=== PATIENT | female | born 1985 | race Caucasian/White ===

== ENCOUNTER 2016-07-16 00:24 | Emergency (ER) | payer MEDICAID ==
[~2016-07-16] VITALS: Ht 157.5 cm; Wt 90.9 kg
[~2016-07-16 00:24] MED LIST: FERR240T9 PO; FOL8 PO; PREN-39 PO
[2016-07-16 00:28] VITALS: Ht 157.5 cm; Wt 90.9 kg
[2016-07-16] MEDS ORDERED: morphine 4 MG/ML VIAL IV STA (01:10)
[2016-07-16] MEDS ORDERED: ONDANSETRON 4 MG INJ IV STA (01:10)
[2016-07-16] MEDS ORDERED: SOD CHLORIDE 0.9% 1,000 ML IV STA (01:10)
--- NOTE | 2016-07-16 01:14 | ERD ---
ER Documentation Chief Complaint Date/Time DATE: 07/16/16 TIME: 01:12 Chief Complaint abd pain HPI Patient is a 31-year-old female who reports knowledge of her cholelithiasis. She states she has visited multiple ERs already for this. She apparently has also had a hospitalization over at [place] for this as well. She has been told to follow-up with a surgeon to have her gallbladder removed at her convenience. She states that she has come here tonight because she is started having abdominal pain once again about an hour ago. Pain is located in epigastric region as well as right upper quadrant radiating through to the back with nausea and vomiting. She has not had any fever. Initially she said she had an infection however on further questioning she was told that she was at risk for infection. She has not had any diarrhea or dysuria, no hematuria. She states eating and movement increases the pain, nothing helps the pain including the hydrocodone that she took. The remainder review systems are negative. ROS All systems reviewed and are negative except as per history of present illness. Medications Home Meds Reported Medications Folic Acid* (Folic Acid*) 0.8 Mg Tablet, 0.8 MG PO DAILY, TAB 07/09/15 Ferrous Gluconate (Iron) 1 Tab Tablet, 1 TAB PO DAILY, TAB 07/09/15 Vits W-Ca,Fe,Fa(<1MG) ( Vitamins) 1 Tab Tablet, 1 TAB PO DAILY , TAB 07/09/15 Allergies Allergies: Coded Allergies: No Known Allergy (Verified , 09/30/15) PMhx/Soc Medical and Surgical Hx: pt denies Surgical Hx History of Surgery: No Anesthesia Reaction: No Hx Neurological Disorder: No Hx Respiratory Disorders: No Hx Cardiac Disorders: No Hx Psychiatric Problems: No Hx Miscellaneous Medical Probl: Yes (gallstones) Hx Alcohol Use: No Hx Substance Use: No Hx Tobacco Use: No Smoking Status: Never smoker FmHx Differential includes but is not limited to cholelithiasis, biliary colic, cholecystitis, pancreatitis, gastritis, ulcer, GERD Family History: No diabetes Physical Exam Vitals Vital Signs Date Time Temp Pulse Resp B/P Pulse Ox O2 Delivery O2 Flow Rate FiO2 07/16/16 00:28 97.9 86 18 137/78 100 Physical Exam Const: [] Well-developed well-nourished female on the bed in no obvious distress Head: Atraumatic normocephalic Eyes: Normal Conjunctiva ENT: Normal External Ears, Nose and Mouth. Neck: Full range of motion..~ No meningismus. Resp: Clear to auscultation bilaterally Cardio: Regular rate and rhythm, no murmurs Abd: Soft, mild tenderness to palpation epigastric and right upper quadrant region with no masses, rebound, or guarding, non distended. Normal bowel sounds Skin: No petechiae or rashes Back: No midline or flank tenderness Ext: No cyanosis, or edema Neur: Awake and alert, oriented 3 with a GCS of 15 Psych: Normal Mood and Affect Result Diagram: 07/16/164 07/16/16 0124 Results 24 hrs Laboratory Tests Test 07/16/16 01:24 Alanine Aminotransferase (ALT/SGPT) 36IU/L Albumin 4.0g/dl Albumin/Globulin Ratio 1.25 Alkaline Phosphatase 95IU/L Anion Gap 17 Aspartate Amino Transf (AST/SGOT) 43IU/L Basophils # 0.010^3/ul Basophils % 0.2% Blood Urea Nitrogen 22mg/dl Calcium Level 8.9mg/dl Carbon Dioxide Level 26mmol/L Chloride Level 103mmol/L Creatinine 0.59mg/dl Direct Bilirubin 0.00mg/dl Eosinophils # 0.310^3/ul Eosinophils % 2.6% Globulin 3.20g/dl Glucose Level 133mg/dl Hematocrit 37.8% Hemoglobin 12.0g/dl Indirect Bilirubin 0.0mg/dl Lipase 69U/L Lymphocytes # 2.710^3/ul Lymphocytes % 25.2% Mean Corpuscular Hemoglobin 24.3pg Mean Corpuscular Hemoglobin Concent 31.7g/dl Mean Corpuscular Volume 76.7fl Mean Platelet Volume 8.7fl Monocytes # 0.510^3/ul Monocytes % 4.7% Neutrophils # 7.210^3/ul Neutrophils % 67.0% Nucleated Red Blood Cells # 0.010^3/ul Nucleated Red Blood Cells % 0.0/100WBC Platelet Count 59839^3/UL Potassium Level 4.0mmol/L Red Blood Count 4.9310^6/ul Red Cell Distribution Width 14.3% Sodium Level 142mmol/L Total Bilirubin 0.0mg/dl Total Protein 7.2g/dl White Blood Count 10.710^3/ul Current Medications Medications (Trade) Dose Ordered Sig/Crow Route PRN Reason Start Time Stop Time Status Last Admin Dose Admin Sodium Chloride (NS) 1,000 ml @ 1,000 mls/hr Q1H STAT IV 07/16/16 01:10 07/16/16 02:09 DC 07/16/16 01:16 Morphine Sulfate (morphine) 4 mg ONCE STAT IV 07/16/16 01:10 07/16/16 01:12 DC 07/16/16 01:15 Ondansetron HCl (Zofran Inj) 4 mg ONCE STAT IV 07/16/16 01:10 07/16/16 01:12 DC 07/16/16 01:16 Procedures/MDM Ultrasound shows cholelithiasis without cholecystitis and no evidence of obstruction White count is normal, bilirubin and LFTs are normal. Patient's pain is much improved. She may follow-up as an outpatient to have her gallbladder removed at her convenience. Departure Diagnosis: Primary Impression: Cholelithiases Cholelithiasis location: gallbladder Cholecystitis presence: without cholecystitis Biliary obstruction: without biliary obstruction Qualified Code : K80.20 - Calculus of gallbladder without cholecystitis without obstruction Additional Impression: Biliary colic Condition: Stable Patient Instructions: Biliary Colic With Gallstone (Confirmed) Referrals: ANGEL JOYCE MD Additional Instructions: Avoid any food that is high fat content. This will cause your gallbladder to contract and will cause you to have pain. You need to contact a surgeon and I have provided a surgeon for you to call. When you call to let them know that we referred from the emergency department. You may then set up an appointment to discuss having her gallbladder removed. Return to the emergency department if you develop any fever, pain that does not resolve, intractable vomiting, or any new or worsening symptoms. ZAKIA DELATORRE Jul 16, 2016 01:14
[2016-07-16 01:33] LABS: ADD SCAN DIFF NO
[2016-07-16 01:35] LABS: BASOPHILS % 0.2 % (0.0-2.0); EOSINOPHILS # 0.3 10^3/ul (0.0-0.5); EOSINOPHILS % 2.6 % (0.0-7.0); HEMATOCRIT 37.8 % (37.0-47.0); LYMPHOCYTES # 2.7 10^3/ul (0.8-2.9); LYMPHOCYTES % 25.2 % (15.0-51.0); MEAN CORPUSCULAR HEMOGLOBIN 24.3 pg (29.0-33.0); MEAN CORPUSCULAR HGB CONC 31.7 g/dl (32.0-37.0); MEAN CORPUSCULAR VOLUME 76.7 fl (82.0-101.0); MEAN PLATELET VOLUME 8.7 fl (7.4-10.4); MONOCYTE # 0.5 10^3/ul (0.3-0.9); MONOCYTES % 4.7 % (0.0-11.0); NEUTROPHIL # 7.2 10^3/ul (1.6-7.5); PLATELET COUNT 393 10^3/UL (140-415); RED BLOOD COUNT 4.93 10^6/ul (4.20-5.40); RED CELL DISTRIBUTION WIDTH 14.3 % (11.5-14.5); WHITE BLOOD COUNT 10.7 10^3/ul (4.8-10.8)
[2016-07-16 01:48] LABS: CREATININE 0.59 mg/dl (0.44-1.00)
[2016-07-16 01:49] LABS: ALBUMIN/GLOBULIN RATIO 1.25; CALCIUM 8.9 mg/dl (8.4-10.2); TOTAL PROTEIN 7.2 g/dl (6.1-8.1)
--- NOTE | 2016-07-16 02:01 | RADRPT ---
PROCEDURE: ULTRASOUND LIMITED ABDOMEN CLINICAL INDICATION: 31-year-old female with abdominal pain. TECHNIQUE: Multiple sonographic of the right upper quadrant of the abdomen were obtained. The imag es were reviewed on a PACS workstation. COMPARISON: Ultrasound right upper quadrant August 24, 2015. FINDINGS: The pancreas is partially visualized and is otherwise without abnormal echogenicity. The liver displays normal echogenicity. The liver measures 16.6 cm in length. No evidence of intrah epatic biliary ductal dilatation is seen. The portal and hepatic veins are unremarkable. The gallbladder is distended and contains a prominent shadowing stone having transverse dimension of approximately 2.6 cm. The gallbladder wall thickness is within normal limits measuring 2.6 mm. No pericholecystic fluid is seen. The common bile duct measures 7.4 mm and is dilated. The right kidney displays normal echogenicity. The right kidney measures 12.1 cm in maximal length. No caliectasis or hydronephrosis is seen. No free fluid is seen. IMPRESSION: Cholelithiasis with dilated common bile duct. .Kiko White MD, Date Time Electronically viewed and signed by .Kiko White MD, on 07/16/2016 02:00 .M/
[2016-07-16] MEDS ORDERED: HYDR-906 PO (04:04)
[2016-07-16] MEDS ORDERED: ONDA4TAB8 PO (04:06)
[2016-07-16 04:18] LABS: ADD UMIC YES; URINE BILIRUBIN (Dip) NEGATIVE (NEGATIVE); URINE BLOOD (Dip) 3+ (NEGATIVE); URINE COLOR LT. YELLOW (YELLOW); URINE GLUCOSE (Dip) NEGATIVE (NEGATIVE); URINE KETONES (Dip) NEGATIVE (NEGATIVE); URINE LEUKOCYTE ESTERASE (Dip) NEGATIVE (NEGATIVE); URINE NITRITE (Dip) NEGATIVE (NEGATIVE); URINE TOTAL PROTEIN (Dip) NEGATIVE (NEGATIVE); URINE UROBILINOGEN (Dip) 1.0 E.U./dL (0.1-1.0)
[2016-07-16 04:28] VITALS: BP 125/65; PULSE 77; RESP 16; TEMP 98.9
[2016-07-16 04:47] LABS: SQUAMOUS EPITHELIAL CELL,UR MODERATE; URINE RBCS >200 /HPF (0)
[2016-07-16 04:48] LABS: BACTERIA,URINE MODERATE
== END 2016-07-16 04:35 | disposition home or self-care (01) ==
LOC: E/R 00:24
DX: K80.70 Calculus of gallbladder and bile duct without cholecystitis without obstruction (principal); R40.2252 Coma scale, best verbal response, oriented, at arrival to emergency department; R11.2 Nausea with vomiting, unspecified; R40.2142 Coma scale, eyes open, spontaneous, at arrival to emergency department; R40.2362 Coma scale, best motor response, obeys commands, at arrival to emergency department
CPT/HCPCS: 36415; 76705; 80053; 81001; 83690; 85025; 96374; 96375; J2270; J2405; J7030; Z7502; 81003